=== PATIENT | female | born 1990 | race African-American/Black ===

== ENCOUNTER 2021-04-22 19:06 | Emergency (ER) | payer OTHER ==
[~2021-04-22] VITALS: Ht 170.2 cm; Wt 65.8 kg
[~2021-04-22 19:06] MED LIST: AUGMENTIN 875875 MG PO; BACTRIM DS TAB1 EACH PO; CIPROFLOXACIN500 M1 PO; DIAZEPAM; FLAGYL500 MG PO; GARAMYCIN5 M1 OP; HYDROCODONE-AP1 EAC6 PO; IBUPROFEN 400400 M2 PO; IBUPROFEN 600600 M1 PO; IBUPROFEN 800800 MG PO; LOTRIMIN30 GM TP; MAALOX525 MG/15; MACROBID 100 M100 M1 PO; NAPROSYN500 MG PO; NOHOMEMEDICATIONS; NORCO 5-325 TA1 EACH; NORCO 5-325 TA1 EACH PO; NORFLEX100 MG PO; PEPCID40 MG PO; PHENERGAN 25 MG25 M1 PO; PROBIOTIC1 EAC1 PO; PYRIDIUM200 MG PO
[2021-04-22] MEDS ORDERED: HYDROCODON-ACE1 EAC7 PO (21:13)
[2021-04-22 21:36] VITALS: BP 137/94
== END 2021-04-22 21:41 | disposition home or self-care (01) ==
LOC: ER 19:06
DX: S90.31XA Contusion of right foot, initial encounter (principal); F17.210 Nicotine dependence, cigarettes, uncomplicated; Z79.891 Long term (current) use of opiate analgesic; Z79.899 Other long term (current) drug therapy; V22.4XXA Motorcycle driver injured in collision with two- or three-wheeled motor vehicle in traffic accident, initial encounter; Y93.89 Activity, other specified; Y92.89 Other specified places as the place of occurrence of the external cause; Y99.8 Other external cause status